=== PATIENT | male | born 1980 | race Caucasian/White ===

== ENCOUNTER 2016-09-20 19:17 | Emergency (ER) | payer SELFPAY ==
--- NOTE | 2016-09-20 19:46 | ED ---
General Adult HPI - General Source: patient, RN notes reviewed Mode of arrival: ambulatory Limitations: no limitations <Eric Kam - Last Filed: 09/20/16 19:41> <Michael Hernández - Last Filed: 09/21/16 00:49> - General Chief complaint: Alcohol Stated complaint: ETOH Time Seen by Provider: 09/20/16 19:22 - History of Present Illness Initial comments: Chief complaint and history of present illness 36-year-old male reports that he is in [facility] ON HIS WAY TO [facility] TO BE WITH HIS MOTHER. THE PATIENT DOES HAVE HISTORY OF DEPRESSION IN THE PAST BUT DENIES BEING DEPRESSED NOW. HE DOES REPORT SHE'S NOT ALCOHOLIC AND FELL OFF THE [place]AG[place] THE LAST SEVERAL DAYS. HE SPENT SOME TIME AT [facility] LAST NIGHT. HE WAS DISCHARGED WITH PRESCRIPTION FOR LIBRIUM. PATIENT STATES HE WAS AT A PHARMACY GETTING IT FILLED WHEN THE POLICE APPROACHED HIM AND OFFERED HER A RIDE TO THE HOSPITAL. PATIENT DENIES BEING SUICIDAL OR DEPRESSED AT THIS TIME. (Eric Kam) Review of Systems ROS Other: All systems not noted in ROS Statement are negative. <Eric Kam - Last Filed: 09/20/16 19:41> ROS Other: All systems not noted in ROS Statement are negative. <Michael Hernández - Last Filed: 09/21/16 00:49> ROS Statement: Those systems with pertinent positive or pertinent negative responses have been documented in the HPI. Review of systems no complaint of headache or visual acuity changes no neck ache chest pain shortness of breath he has chronic abdominal discomfort from vomiting. He also claims have stomach polyps or cancer she does not want treatment. States she has a history of depression but is not depressed and wanting to kill himself. All systems otherwise reviewed. Past medical problems depression, alcoholism. Denies any ALLERGIES. No history states his mother has colon cancer (Eric Kam) Past Medical History Past Medical History: Diabetes Mellitus, Hypertension Additional Past Medical History / Comment(s): depression- states he has stomach cancer History of Any Multi-Drug Resistant Organisms: None Reported Past Psychological History: No Psychological Hx Reported Smoking Status: Current every day smoker Past Alcohol Use History: Daily Past Drug Use History: None Reported <Eric Kam - Last Filed: 09/20/16 19:41> General Exam Limitations: no limitations <Eric Kam - Last Filed: 09/20/16 19:41> <Michael Hernández - Last Filed: 09/21/16 00:49> - General Exam Comments Initial Comments: General: The patient is awake and alert, in no distress, and does not appear acutely ill. Simply states he is on his way home to see his mother. He got drunk this evening and the police brought him to the hospital. He denies homicidal or suicidal thoughts. Vital signs are stable. Eye: Pupils are equal, round and reactive to light, extra-ocular movements are intact ; there is normal conjunctiva bilaterally. No signs of icterus. Ears, nose, mouth and throat: There are moist mucous membranes and no oral lesions. Neck: The neck is supple, there is no tenderness . Cardiovascular: There is a regular rate and rhythm. No murmur, rub or gallop is appreciated. Respiratory: Lungs are clear to auscultation, respirations are non-labored, breath sounds are equal. No wheezes, stridor, rales, or rhonchi. Gastrointestinal: Mild abdominal discomfort with palpation no organomegaly. Patient reports he's been vomiting because she is and drinking. Denies black stool. Back: There is no tenderness to palpation in the midline. There is no obvious deformity. No rashes noted. Musculoskeletal: Normal ROM, no tenderness, There is no pedal edema. There is no calf tenderness or swelling. Sensation intact. Neurological: CN II-XII intact, There are no obvious motor or sensory deficits. Coordination appears grossly intact. Speech is normal. No evidence of a neurological disorder. Skin: Skin is warm and dry and no rashes or lesions are noted. Psychiatric: Cooperative, appropriate mood & affect, normal judgment. Though he admits he is intoxicated denies being depressed or suicidal. Does not want to see a psychiatrist or psychiatric nurse for his problems. States his alcoholic he drank this evening and he just on his way home to see his mother. (Eric Kam) Medical Decision Making <Eric Kam - Last Filed: 09/20/16 19:41> <Michael Hernández - Last Filed: 09/21/16 00:49> - Medical Decision Making The patient is awake and alert. He's been eating and drinking at bedside. I went and spoke with him and he was able to carry on a Conversation with me normally. He was not slurring his words. I got him up and he was able to emulate the hallways without any ataxia. The patient is a chronic alcoholic and at this time appears clinically sober. The patient is given a get a ride [place] friend. This time I feel he is sober to leave under his own accord. Patient was advised to stop drinking. He is given a Librium prescription yesterday. He can return if he has worsening symptoms. (Michael Hernández ) Disposition <Eric Kam - Last Filed: 09/20/16 19:41> <Michael Hernández - Last Filed: 09/21/16 00:49> Clinical Impression: Alcohol abuse Disposition: HOME SELF-CARE Condition: Stable Instructions: Alcohol Intoxication (ED) Referrals: None,Stated [Primary Care Provider] - 1-2 days
[2016-09-20 21:32] VITALS: TEMP 98.1
[2016-09-21 00:01] VITALS: RESP 18
[2016-09-21 01:07] VITALS: BP 123/75; PULSE 102
== END 2016-09-21 01:07 | disposition home or self-care (01) ==
LOC: EC 19:17
DX: F10.129 Alcohol abuse with intoxication, unspecified (principal); R10.9 Unspecified abdominal pain; R11.10 Vomiting, unspecified; F17.200 Nicotine dependence, unspecified, uncomplicated
CPT/HCPCS: 82075; 99283